=== PATIENT | male | born 1980 | race Caucasian/White ===

== ENCOUNTER 2016-06-16 08:57 | Day surgery (SDC) | payer MEDICAID ==
[2016-06-16] MEDS ORDERED: TRIAMCINOLONE ACETONIDE 40 MG/ML VIAL ONE (09:19)
[2016-06-16] MEDS ORDERED: IOPAMIDOL (ISOVUE-M 200) 20 ML VIAL IV ONE (09:19)
[2016-06-16] MEDS ORDERED: DEXAMETHASONE 10 MG/ML VIAL ONE (09:19)
[2016-06-16] MEDS ORDERED: NA BICARBONATE 50 MEQ/50 ML VIAL ONE (09:19)
[2016-06-16] MEDS ORDERED: fentaNYL 100 MCG/2 ML INJ ONE (09:20)
[2016-06-16] MEDS ORDERED: LIDOCAINE 1% 30 ML SDV ONE (09:20)
[2016-06-16] MEDS ORDERED: MIDAZOLAM 2 MG/2 ML VIAL ONE (09:20)
[2016-06-16] MEDS ORDERED: MIDAZOLAM 2 MG/2 ML VIAL IVP ONE (10:30)
--- NOTE | 2016-06-17 16:13 | GPN ---
[f rep st] PROCEDURE NOTE DATE OF PROCEDURE: 06/16/2016 TIME: 10:00 a.m. HISTORY OF PRESENT ILLNESS: Mr. Velazquez presents for followup and possible repeat left L4-5 transforaminal injection. The last such injection provided 100 % relief of his pain, lasting until May 27, when he took a long car ride. He is not taking any blood thinners or antibiotics, and denies allergies to shellfish, latex, contrast dye and iodine. He reports that the sedation he was given at the last procedure was perfect and he does not remember anything. PROCEDURE: Left L5-S1 transforaminal epidural steroid injection. DIAGNOSIS: Lumbar radiculopathy. PROVIDER: Tami Card M.D. ANESTHESIA: Local with Versed 8 mg and fentanyl 150 mcg IV. COMPLICATIONS: None. ESTIMATED BLOOD LOSS: Minimal. PREPROCEDURE CONSENT: The preprocedure consent was obtained after the risks, benefits, and alternatives of the procedure were explained to the patient. The risks include, but are not limited to, nerve injury, spinal cord injury, paralysis, brain injury or stroke, muscle injury, infection, adverse medication effects, bleeding, increased pain, , and any other unforeseen consequences. The patient agreed and signed the consent for the procedure. VERBAL VERIFICATION AND TIME-OUT: Verbal verification of patient, site, and procedure was done. All present were in agreement. Please see nursing notes for time of time-out. DESCRIPTION OF PROCEDURE: The patient was identified and placed in a prone position. Standard monitors were put in place. A left-sided oblique fluoroscopic view was obtained with the superior articular process of S1 aligned with the pedicle of L5. The skin over the intended target site at the 6 o'clock position of the L5 pedicle was marked and prepped in the usual sterile fashion with ChloraPrep and a fenestrated drape. Then, using sterile technique, 2 mL of subcutaneous 1% lidocaine was instilled into the superficial soft tissues for local anesthesia over the above-stated regions. The tip of a 22-gauge, 5-inch spinal needle was advanced percutaneously toward the 6 o'clock position under intermittent fluoroscopic guidance toward the anterior epidural space of the L5 foramen. Confirmation of proper needle position was made with AP, lateral and oblique fluoroscopic views. After negative aspiration for blood and cerebrospinal fluid, 0.5 mL of nonionic contrast dye was injected. Fluoroscopic imaging revealed a clear outline of the L5 nerve root with proximal spread of agents through the neural foramen into the epidural space without vascular uptake. Then, 3 mL of injectate containing 80 mg of triamcinolone and 1 mL of 1% preservative free lidocaine was administered slowly. The patient had a paresthesia concordant with his painful area that resolved after injection. The needle was restyleted and removed. Vital signs were stable throughout the procedure. The patient tolerated the procedure well and stayed for 30 more minutes with no apparent complications, and was discharged home in good condition with a ride. He experienced no side effects from sedation, and was instructed not to drive, operate heavy machinery , or make any life-altering decisions today. He was instructed to call our clinic with nonurgent concerns or 911 in an emergency. In particular, he was taught that new weakness or numbness, changes in bowel or bladder control, fever and swelling or redness over the injection site are all urgent concerns that would warrant calling 911 or going to an emergency care facility. He verbalized understanding and was discharged home with postprocedure instructions. ASSESSMENT/PLAN: Left L5-S1 transforaminal epidural steroid injection done today without complications. The patient was still minimally sedated despite the amount of Versed and fentanyl he was given. Nursing report was that he was becoming sedated in the recovery room after the procedure. We will plan for him to come in earlier before his next procedure to begin sedation. He will return to our clinic for followup as needed, and we will consider repeating the procedure as needed. /[id number]/MODL MTDD
== END 2016-06-16 10:56 | disposition home health service (06) ==
LOC: FSGY 08:57 → FPAT 08:57 → FSGY 10:56
PROVIDERS: ATTEND Anesthesiology
PROC: B04BZZZ Ultrasonography of Spinal Cord (ICD-10-PCS; principal; 2016-06-16 10:00)
PROC: 3E0S3BZ Introduction of Anesthetic Agent into Epidural Space, Percutaneous Approach (ICD-10-PCS; principal; 2016-06-16 10:00)
PROC: 3E0S33Z Introduction of Anti-inflammatory into Epidural Space, Percutaneous Approach (ICD-10-PCS; principal; 2016-06-16 10:00)
DX: M54.16 Radiculopathy, lumbar region (principal); Z88.0 Allergy status to penicillin
CPT/HCPCS: J2250; J3010; J3301; Q9966

== ENCOUNTER 2017-03-04 12:26 | Day surgery (SDC) | payer MEDICAID ==
[2017-03-04 13:14] VITALS: PULSE 89; RESP 17; TEMP 98.6
[2017-03-04] MEDS ORDERED: MIDAZOLAM 2 MG/2 ML VIAL ONE ×2 (13:19)
[2017-03-04] MEDS ORDERED: NALOXONE HCL 0.4 MG/ML INJ ONE ×2 (13:19)
[2017-03-04] MEDS ORDERED: FLUMAZENIL 0.5 MG/5 ML MDV IVP ONE ×2 (13:19)
[2017-03-04] MEDS ORDERED: fentaNYL 100 MCG/2 ML INJ ONE ×2 (13:19)
[2017-03-04] MEDS ORDERED: HEPARIN 10,000 UNIT/10 ML MDV IVP PRN ×2 (13:23)
[2017-03-04] MEDS ORDERED: PROTAMINE SULFATE 50 MG/5 ML VIAL IVP PRN ×2 (13:23)
[2017-03-04] MEDS ORDERED: GLUCAGON HCL 1 MG VIAL IVP PRN ×2 (13:23)
[2017-03-04] MEDS ORDERED: ALTEPLASE 2 MG VIAL IVP PRN ×2 (13:23)
[2017-03-04] MEDS ORDERED: fentaNYL 100 MCG/2 ML INJ IVP PRN ×2 (13:24)
[2017-03-04] MEDS ORDERED: MEPERIDINE 25 MG/ML SYR IVP PRN ×2 (13:24)
[2017-03-04] MEDS ORDERED: NALOXONE HCL 0.4 MG/ML INJ IVP PRN ×2 (13:24)
[2017-03-04] MEDS ORDERED: MIDAZOLAM 2 MG/2 ML VIAL IVP PRN ×2 (13:24)
[2017-03-04] MEDS ORDERED: FLUMAZENIL 0.5 MG/5 ML MDV IVP PRN ×2 (13:24)
[2017-03-04] MEDS ORDERED: NS 1,000 ML IV SCH ×2 (13:30)
--- NOTE | 2017-03-04 14:03 | PDPROPOC ---
Sedation Plan of Care Sedation Plan of Care: vital signs stable, mental status noted, patient educated of risks, benefits, alternatives, patient can tolerate sedation ASA Classification: ASA 2 Planned drugs: fentanyl, midazolam Mallampati Score: Class 1 Mallampati Reference Image: Patient passed 3-3-2 rule?: Yes
--- NOTE | 2017-03-04 14:05 | PDGENHP ---
History & Physical Chief Complaint: LOW BACK PAIN History of Present Illness: RECURRENT BACK PAIN. PREVIOUS INJECTIONS HAVE HELPED Pertinent Past, Social, Family History: N/A Relevant Physical Exam: MRI AND OTHER IMAGES ON PACS. PAIN IN LOWER BACK AND RADIATES DOWN LEFT LEG OCCASIONALLY. Cardiorespiratory Assessment: RRR, CTA
[2017-03-04 14:28] VITALS: BP 118/65
--- NOTE | 2017-03-04 14:30 | PDRADPN ---
Radiology Procedure Note Date of Procedure: 03/04/17 Radiologist: Keisha Alonzo Anesthesia: IV Sedation (fentanyl and versed) Pre-op Diagnosis: LBP Post-op Diagnosis: same Indication: recurrent pain Procedure: L5-S1 CHINEDU Finding(s): 100mg Kenologue administered. Inf/Abcess present in the surg proc area at time of surgery?: No EBL: Minimal Complications: None
[2017-03-04] MEDS ORDERED: TRIAMCINOLONE ACETONIDE 200 MG/5 ML MDV IM ONE ×2 (14:41)
[2017-03-04] MEDS ORDERED: IOPAMIDOL (ISOVUE-M 300) 15 ML VIAL ONE ×2 (14:41)
[2017-03-04 14:58] VITALS: O2SAT 92
[2017-03-04] MEDS ORDERED: LIDOCAINE 1% 300 MG/30 ML SDV ONE ×2 (15:52)
== END 2017-03-04 15:02 | disposition home or self-care (01) ==
LOC: FIMAGING 12:26
PROVIDERS: ATTEND Registered Nurse
PROC: 3E0S33Z Introduction of Anti-inflammatory into Epidural Space, Percutaneous Approach (ICD-10-PCS; principal; 2017-03-04 14:30)
DX: M54.5 Low back pain (principal); M51.37 Other intervertebral disc degeneration, lumbosacral region
CPT/HCPCS: J2250; J2310; J3010; J3301; Q9967